=== PATIENT | female | born 1990 | race Caucasian/White ===

== ENCOUNTER 2023-11-02 22:35 | Emergency (ER) | payer OTHER ==
[~2023-11-02] VITALS: Ht 167.6 cm; Wt 100.0 kg
[2023-11-02 23:15] LABS: PH 5.5 (5.0-8.5); URINE APPEARANCE CLOUDY (CLEAR/HAZY); URINE BLOOD 3+ (NEGATIVE); URINE COLOR Dark Yellow (YELLOW); URINE GLUCOSE NEGATIVE (NEGATIVE); URINE KETONE NEGATIVE (NEGATIVE); URINE NITRATE POSITIVE (NEGATIVE); URINE PROTEIN(semi-quant) 2+ (NEGATIVE)
[2023-11-02] MEDS ORDERED: Cephalexin 500 MG CAP PO ONE (23:15)
[2023-11-02] MEDS ORDERED: Ketorolac 60 MG/2 ML VIAL IM ONE (23:15)
[2023-11-02 23:21] LABS: COLLECTION METHOD CLEAN CATCH
[2023-11-03] MEDS ORDERED: CEPHALEXIN500 M1 PO (00:01)
[2023-11-03 00:17] VITALS: BP 119/56; PULSE 65; TEMP 98.2
== END 2023-11-03 00:17 | disposition home or self-care (01) ==
LOC: COL.ER 22:35
PROVIDERS: Emergency Medicine
DX: N39.0 Urinary tract infection, site not specified (principal)
CPT/HCPCS: J1885

== ENCOUNTER → 2023-11-09 | Outpatient (CLI) | payer OTHER ==
[~2023-11-09] MED LIST: CEPHALEXIN500 M1 PO
== END ==
LOC: COL.RAD 10:28
DX: N39.0 Urinary tract infection, site not specified (principal)

== ENCOUNTER 2024-04-19 07:38 | Emergency (ER) | payer OTHER ==
[~2024-04-19] VITALS: Ht 167.6 cm; Wt 100.0 kg
[2024-04-19 07:44] VITALS: BP 121/82; TEMP 98.4
[2024-04-19] MEDS ORDERED: Morphine 10 MG/ML VIAL IM ONE (08:00)
[2024-04-19] MEDS ORDERED: Ketorolac 60 MG/2 ML VIAL IM ONE (08:15)
[2024-04-19] MEDS ORDERED: MOTRIN 800800 MG/TAB PO (08:47)
[2024-04-19] MEDS ORDERED: FLEXERIL 1010 MG/TAB PO (08:47)
[2024-04-19] MEDS ORDERED: PERCOCET 325 MG1 TA2 PO (08:47)
[2024-04-19 08:55] VITALS: PULSE 73
== END 2024-04-19 08:55 | disposition home or self-care (01) ==
LOC: COL.ER 07:38
DX: M54.50 Low back pain, unspecified (principal); M54.16 Radiculopathy, lumbar region
CPT/HCPCS: J1885; J2270